=== PATIENT | male | born 1960 | race Caucasian/White ===

== ENCOUNTER 2021-10-14 16:35 | Emergency (ER) | payer OTHER ==
[2021-10-14] MEDS ORDERED: Furosemide 40 MG/4 ML VIAL ONE (17:39)
[2021-10-14 17:48] LABS: #Basophils 0.1 10x3/uL (0.0-0.2); #Eosinphils 0.4 10x3/uL (0.0-0.5); #Monocytes 1.1 10x3/uL (0.0-1.1); #Neutrophils 4.6 10x3/uL (1.5-8.4); %Basophils 0.6 % (0.0-2.0); %Eosinophils 4.5 % (0.0-6.0); %Lymphocytes 23.9 % (18.0-47.0); %Monocytes 13.5 % (0.0-10.0); %Neutrophils 57.1 % (40.0-75.0); Hemoglobin 14.5 g/dL (13.5-17.5); Mean Corpuscular HGB CONC 31.2 g/dL (32.0-36.0); Mean Corpuscular Hemoglobin 29.7 pg (27.0-33.0); Mean Corpuscular Volume 95.3 fl (81.2-95.1); Mean Platelet Volume 10.9 fl (7.4-10.4); Platelet Count 203 10x3/uL (150-450); RBC Distribution Width 12.5 % (11.5-14.5); Red Blood Cell (RBC) Count 4.88 10x6/uL (4.32-5.72)
[2021-10-14 18:04] LABS: ALT (SGPT) 56 U/L (8-55); AST (SGOT) 25 U/L (5-34); Albumin 3.9 g/dL (3.5-5.0); Alkaline Phosphatase 69 U/L (40-110); Anion Gap 12 mmol/L (10-20); BUN (Urea Nitrogen) 11 mg/dL (8.4-25.7); Bilirubin, Total 0.4 mg/dL (0.2-1.2); Calc. Creatinine Clearance 0 mL/min (70-130); Calcium 9.2 mg/dL (7.8-10.44); Carbon Dioxide 31 mmol/L (22-29); Chloride 104 mmol/L (98-107); Globulin 3.3 g/dL (2.4-3.5); Glucose 113 mg/dL (70-105); Potassium 4.5 mmol/L (3.5-5.1); Protein, Total 7.2 g/dL (6.0-8.3); Sodium 142 mmol/L (136-145)
[2021-10-14 21:18] LABS: Bilirubin Neg (Negative); Blood, Urine 10 (Negative); Clarity Clear (Clear); Glucose, Urine (Dipstick) Normal (Negative); Ketone, Urine Negative (Negative); Leukocyte Negative (Negative); Nitrite Negative (Negative); Protein, Urine (Dipstick) Negative (Neg-Trace); Specific Gravity, Urine 1.005 (1.002-1.036); Urobilinogen Normal mg/dL (Less than 2)
[2021-10-14 21:25] LABS: Bacteria/HPF Rare-Few HPF (None Seen); RBC/HPF 0-3 HPF (0-3); Squamous Epithelial 0-3 HPF (0-3); WBC/HPF None Seen HPF (0-3)
== END 2021-10-15 00:44 | disposition short-term general hospital (02) ==
LOC: CSHERS 16:35
DX: R60.0 Localized edema (principal); R33.9 Retention of urine, unspecified; G47.30 Sleep apnea, unspecified; I25.10 Atherosclerotic heart disease of native coronary artery without angina pectoris; G47.33 Obstructive sleep apnea (adult) (pediatric); E78.5 Hyperlipidemia, unspecified; I50.9 Heart failure, unspecified
CPT/HCPCS: 51702; 71045; 80053; 81003; 81015; 83880; 84484; 85025; 86140; 87086; 93005; 96374; J1940

== ENCOUNTER 2021-12-24 20:43 | Inpatient (IN) | payer OTHER ==
[2021-12-24] MEDS ORDERED: Furosemide 100 MG/10 ML VIAL ONE (21:21)
[2021-12-24 21:33] LABS: #Basophils 0.1 10x3/uL (0.0-0.2); #Eosinphils 0.4 10x3/uL (0.0-0.5); #Neutrophils 4.8 10x3/uL (1.5-8.4); %Basophils 0.6 % (0.0-2.0); %Eosinophils 4.4 % (0.0-6.0); %Lymphocytes 26.4 % (18.0-47.0); %Monocytes 11.5 % (0.0-10.0); %Neutrophils 56.7 % (40.0-75.0); Hemoglobin 13.6 g/dL (13.5-17.5); Mean Corpuscular HGB CONC 32.6 g/dL (32.0-36.0); Mean Corpuscular Hemoglobin 29.5 pg (27.0-33.0); Mean Corpuscular Volume 90.5 fl (81.2-95.1); Mean Platelet Volume 11.4 fl (7.4-10.4); Platelet Count 194 10x3/uL (150-450); Red Blood Cell (RBC) Count 4.61 10x6/uL (4.32-5.72); White Blood Cell (WBC) Count 8.5 10x3/uL (3.5-10.5)
[2021-12-24 21:47] LABS: ALT (SGPT) 53 U/L (8-55); AST (SGOT) 24 U/L (5-34); Albumin 3.9 g/dL (3.5-5.0); Alkaline Phosphatase 75 U/L (40-110); Anion Gap 15 mmol/L (10-20); BUN (Urea Nitrogen) 14 mg/dL (8.4-25.7); Bilirubin, Total 0.4 mg/dL (0.2-1.2); Calc. Creatinine Clearance 0 mL/min (70-130); Calcium 8.5 mg/dL (7.8-10.44); Carbon Dioxide 28 mmol/L (22-29); Chloride 101 mmol/L (98-107); Globulin 2.8 g/dL (2.4-3.5); Glucose 133 mg/dL (70-105); Potassium 3.7 mmol/L (3.5-5.1); Protein, Total 6.7 g/dL (6.0-8.3); Sodium 140 mmol/L (136-145)
[2021-12-25 00:31] LABS: SARS-CoV-2 NAA Rapid Test Not Detected (NotDetected)
[2021-12-25] MEDS ORDERED: Guaifenesin DM 100-10/5 ML UDCUP PO PRN (01:29)
[2021-12-25] MEDS ORDERED: Ondansetron PF 4 MG/2 ML Vial IVP PRN (01:29)
[2021-12-25] MEDS ORDERED: Calcium Carbonate 500 MG ChewTAB PO PRN (01:29)
[2021-12-25] MEDS ORDERED: Acetaminophen 325 MG TAB PO PRN (01:29)
[2021-12-25] MEDS ORDERED: Senokot S 8.6-50 MG TAB PO PRN (01:29)
[2021-12-25 02:13] VITALS: BMI 43.0
[2021-12-25] MEDS ORDERED: Potassium Chloride 20 MEQ TAB PO SCH (02:30)
[2021-12-25 04:34] LABS: PTT 25.7 sec (22.0-33.0); Prothrombin Time 11.4 sec (9.5-12.1)
[2021-12-25 04:46] LABS: Anion Gap 17 mmol/L (10-20); BUN (Urea Nitrogen) 15 mg/dL (8.4-25.7); Calc. Creatinine Clearance 143 mL/min (70-130); Calcium 8.8 mg/dL (7.8-10.44); Carbon Dioxide 28 mmol/L (22-29); Chloride 98 mmol/L (98-107); Glucose 168 mg/dL (70-105); Potassium 3.6 mmol/L (3.5-5.1); Sodium 139 mmol/L (136-145)
[2021-12-25] MEDS: Levothyroxine Sodium 25 MCG TAB PO SCH (05:05)
[2021-12-25] MEDS: Furosemide 100 MG/10 ML VIAL SLOW IVP SCH ×2 (05:05→15:37)
[2021-12-25 05:56] LABS: Bilirubin Neg (Negative); Blood, Urine Negative (Negative); Clarity Clear (Clear); Glucose, Urine (Dipstick) Normal (Negative); Ketone, Urine Negative (Negative); Leukocyte Negative (Negative); Nitrite Negative (Negative); Protein, Urine (Dipstick) Negative (Neg-Trace); Urobilinogen Normal mg/dL (Less than 2)
[2021-12-25 06:01] LABS: Bacteria/HPF None Seen HPF (None Seen); RBC/HPF 0-3 HPF (0-3); Squamous Epithelial 0-3 HPF (0-3); WBC/HPF 0-3 HPF (0-3)
[2021-12-25] MEDS: Aspirin 81 mg Enteric Coated Tablet PO SCH (08:41)
[2021-12-25] MEDS: Potassium Chloride 20 MEQ TAB PO SCH (08:41)
[2021-12-25] MEDS: Metoprolol Tartrate 25 MG TAB PO SCH ×3 (08:41→20:30)
[2021-12-25] MEDS ORDERED: Enoxaparin Sodium 40 MG/0.4 ML SYRINGE SC SCH (09:00)
[2021-12-25 12:31] LABS: Hemoglobin A1c 6.7 % (4.0-6.0)
[2021-12-25] MEDS ORDERED: HumaLOG 300 UNITS/3 ML VIAL SC PRN (13:09)
[2021-12-25] MEDS ORDERED: Dextrose 50% Abboject 50 ML SYRINGE SLOW IVP PRN (13:09)
[2021-12-25] MEDS: Lisinopril 10 MG TAB PO SCH (13:09)
[2021-12-25] MEDS ORDERED: Dextrose 5% in Water 1,000 ML IV PRN (13:09)
[2021-12-25] MEDS: Warfarin Sodium 5 MG TAB PO SCH (17:57)
[2021-12-25] MEDS: Atorvastatin Calcium 40 MG TAB PO SCH (20:27)
[2021-12-25] MEDS: Terazosin HCl 1 MG CAP PO SCH (20:27)
[2021-12-26 04:13] LABS: #Eosinphils 0.3 10x3/uL (0.0-0.5); #Neutrophils 3.6 10x3/uL (1.5-8.4); %Basophils 0.4 % (0.0-2.0); %Eosinophils 4.4 % (0.0-6.0); %Lymphocytes 29.2 % (18.0-47.0); %Neutrophils 51.7 % (40.0-75.0); Hemoglobin 13.7 g/dL (13.5-17.5); Mean Corpuscular HGB CONC 32.3 g/dL (32.0-36.0); Mean Corpuscular Hemoglobin 29.4 pg (27.0-33.0); Mean Platelet Volume 11.5 fl (7.4-10.4); Platelet Count 176 10x3/uL (150-450); RBC Distribution Width 12.1 % (11.5-14.5); Red Blood Cell (RBC) Count 4.66 10x6/uL (4.32-5.72)
[2021-12-26 04:19] LABS: Anion Gap 12 mmol/L (10-20); BUN (Urea Nitrogen) 15 mg/dL (8.4-25.7); Calc. Creatinine Clearance 149 mL/min (70-130); Calcium 8.6 mg/dL (7.8-10.44); Carbon Dioxide 30 mmol/L (22-29); Chloride 100 mmol/L (98-107); Glucose 146 mg/dL (70-105); Potassium 3.6 mmol/L (3.5-5.1); Sodium 138 mmol/L (136-145)
[2021-12-26] MEDS: Furosemide 100 MG/10 ML VIAL SLOW IVP SCH ×2 (05:18→13:49)
[2021-12-26] MEDS: Levothyroxine Sodium 25 MCG TAB PO SCH (05:18)
[2021-12-26] MEDS: Metoprolol Tartrate 25 MG TAB PO SCH ×2 (08:41→20:50)
[2021-12-26] MEDS: Potassium Chloride 20 MEQ TAB PO SCH (08:41)
[2021-12-26] MEDS: Aspirin 81 mg Enteric Coated Tablet PO SCH (08:41)
[2021-12-26] MEDS: Lisinopril 10 MG TAB PO SCH (08:41)
[2021-12-26 09:09] LABS: PTT 25.3 sec (22.0-33.0); Prothrombin Time 11.1 sec (9.5-12.1)
[2021-12-26] MEDS: Warfarin Sodium 5 MG TAB PO SCH (17:38)
[2021-12-26] MEDS: Terazosin HCl 1 MG CAP PO SCH (20:50)
[2021-12-26] MEDS: Atorvastatin Calcium 40 MG TAB PO SCH (20:50)
[2021-12-27] MEDS ORDERED: Metoprolol Tartrate 25 MG TAB PO SCH ×2 (02:45→09:00)
[2021-12-27 05:16] LABS: #Eosinphils 0.4 10x3/uL (0.0-0.5); #Monocytes 0.8 10x3/uL (0.0-1.1); #Neutrophils 3.1 10x3/uL (1.5-8.4); %Basophils 0.5 % (0.0-2.0); %Eosinophils 5.6 % (0.0-6.0); %Lymphocytes 31.5 % (18.0-47.0); %Monocytes 12.8 % (0.0-10.0); %Neutrophils 49.3 % (40.0-75.0); Hemoglobin 13.9 g/dL (13.5-17.5); Mean Corpuscular HGB CONC 32.3 g/dL (32.0-36.0); Mean Corpuscular Hemoglobin 29.3 pg (27.0-33.0); Mean Corpuscular Volume 90.7 fl (81.2-95.1); Mean Platelet Volume 11.3 fl (7.4-10.4); Platelet Count 183 10x3/uL (150-450); Red Blood Cell (RBC) Count 4.74 10x6/uL (4.32-5.72); White Blood Cell (WBC) Count 6.3 10x3/uL (3.5-10.5)
[2021-12-27 05:23] LABS: Prothrombin Time 11.3 sec (9.5-12.1)
[2021-12-27 05:27] LABS: Anion Gap 11 mmol/L (10-20); BUN (Urea Nitrogen) 19 mg/dL (8.4-25.7); Calc. Creatinine Clearance 185 mL/min (70-130); Calcium 8.8 mg/dL (7.8-10.44); Carbon Dioxide 30 mmol/L (22-29); Chloride 102 mmol/L (98-107); Glucose 130 mg/dL (70-105); Sodium 139 mmol/L (136-145)
[2021-12-27] MEDS: Levothyroxine Sodium 25 MCG TAB PO SCH (05:52)
[2021-12-27] MEDS: Furosemide 100 MG/10 ML VIAL SLOW IVP SCH ×2 (05:52→13:01)
[2021-12-27] MEDS: Potassium Chloride 20 MEQ TAB PO SCH (08:48)
[2021-12-27] MEDS: Aspirin 81 mg Enteric Coated Tablet PO SCH (08:48)
[2021-12-27] MEDS: Lisinopril 2.5 MG TAB PO SCH (08:49)
[2021-12-27] MEDS ORDERED: Apixaban 5 MG TAB PO SCH (12:00)
[2021-12-27] MEDS ORDERED: Warfarin Sodium 10 MG TAB PO SCH (17:00)
[2021-12-27] MEDS ORDERED: Warfarin Sodium 5 MG TAB PO SCH (17:00)
[2021-12-27] MEDS: Apixaban 5 MG TAB PO SCH (21:14)
[2021-12-27] MEDS: Atorvastatin Calcium 40 MG TAB PO SCH (21:14)
[2021-12-28 05:12] LABS: #Eosinphils 0.5 10x3/uL (0.0-0.5); #Monocytes 0.8 10x3/uL (0.0-1.1); #Neutrophils 3.4 10x3/uL (1.5-8.4); %Basophils 0.3 % (0.0-2.0); %Monocytes 11.9 % (0.0-10.0); %Neutrophils 50.5 % (40.0-75.0); Hemoglobin 13.8 g/dL (13.5-17.5); Mean Corpuscular HGB CONC 31.8 g/dL (32.0-36.0); Mean Corpuscular Hemoglobin 29.2 pg (27.0-33.0); Mean Corpuscular Volume 91.8 fl (81.2-95.1); Mean Platelet Volume 11.3 fl (7.4-10.4); Platelet Count 183 10x3/uL (150-450); Red Blood Cell (RBC) Count 4.73 10x6/uL (4.32-5.72); White Blood Cell (WBC) Count 6.7 10x3/uL (3.5-10.5)
[2021-12-28] MEDS: Levothyroxine Sodium 25 MCG TAB PO SCH (05:24)
[2021-12-28] MEDS: Furosemide 100 MG/10 ML VIAL SLOW IVP SCH ×2 (05:24→14:42)
[2021-12-28 05:26] LABS: Anion Gap 11 mmol/L (10-20); BUN (Urea Nitrogen) 17 mg/dL (8.4-25.7); Calc. Creatinine Clearance 183 mL/min (70-130); Calcium 8.6 mg/dL (7.8-10.44); Carbon Dioxide 31 mmol/L (22-29); Chloride 100 mmol/L (98-107); Glucose 117 mg/dL (70-105); Potassium 3.9 mmol/L (3.5-5.1); Sodium 138 mmol/L (136-145)
[2021-12-28 05:31] LABS: INR-International Normal Ratio 1.1
[2021-12-28] MEDS: Lisinopril 2.5 MG TAB PO SCH (08:18)
[2021-12-28] MEDS: Aspirin 81 mg Enteric Coated Tablet PO SCH (08:18)
[2021-12-28] MEDS: Apixaban 5 MG TAB PO SCH ×2 (08:18→20:57)
[2021-12-28] MEDS ORDERED: Senokot S 8.6-50 MG TAB PO SCH (11:00)
[2021-12-28] MEDS ORDERED: Polyethylene Glycol 3350 17 GM Packet PO SCH (11:00)
[2021-12-28] MEDS ORDERED: Warfarin Sodium 5 MG TAB PO SCH (17:00)
[2021-12-28] MEDS: Atorvastatin Calcium 40 MG TAB PO SCH (20:56)
[2021-12-28] MEDS: Senokot S 8.6-50 MG TAB PO SCH (20:56)
[2021-12-29 04:19] LABS: Anion Gap 14 mmol/L (10-20); BUN (Urea Nitrogen) 19 mg/dL (8.4-25.7); Calc. Creatinine Clearance 163 mL/min (70-130); Calcium 8.7 mg/dL (7.8-10.44); Carbon Dioxide 28 mmol/L (22-29); Chloride 101 mmol/L (98-107); Glucose 123 mg/dL (70-105); Magnesium 2.1 mg/dL (1.6-2.6); Phosphorus 3.6 mg/dL (2.3-4.7); Potassium 3.8 mmol/L (3.5-5.1); Sodium 139 mmol/L (136-145)
[2021-12-29 04:27] LABS: #Eosinphils 0.4 10x3/uL (0.0-0.5); #Monocytes 0.9 10x3/uL (0.0-1.1); #Neutrophils 3.7 10x3/uL (1.5-8.4); %Basophils 0.6 % (0.0-2.0); %Lymphocytes 30.3 % (18.0-47.0); %Monocytes 11.9 % (0.0-10.0); %Neutrophils 50.9 % (40.0-75.0); Hemoglobin 13.9 g/dL (13.5-17.5); Mean Corpuscular HGB CONC 32.3 g/dL (32.0-36.0); Mean Corpuscular Hemoglobin 29.2 pg (27.0-33.0); Mean Corpuscular Volume 90.3 fl (81.2-95.1); Mean Platelet Volume 11.5 fl (7.4-10.4); Platelet Count 196 10x3/uL (150-450); Red Blood Cell (RBC) Count 4.76 10x6/uL (4.32-5.72); White Blood Cell (WBC) Count 7.2 10x3/uL (3.5-10.5)
[2021-12-29] MEDS ORDERED: Potassium Chloride 20 MEQ TAB PO SCH (06:00)
[2021-12-29] MEDS: Levothyroxine Sodium 25 MCG TAB PO SCH (06:34)
[2021-12-29] MEDS: Furosemide 100 MG/10 ML VIAL SLOW IVP SCH ×2 (06:35→14:21)
[2021-12-29] MEDS: Lisinopril 2.5 MG TAB PO SCH (08:55)
[2021-12-29] MEDS: Senokot S 8.6-50 MG TAB PO SCH (08:55)
[2021-12-29] MEDS: Apixaban 5 MG TAB PO SCH (08:56)
[2021-12-29] MEDS: Aspirin 81 mg Enteric Coated Tablet PO SCH (08:56)
[2021-12-29] MEDS ORDERED: Polyethylene Glycol 3350 17 GM Packet PO SCH (09:00)
[2021-12-29] MEDS: HumaLOG 300 UNITS/3 ML VIAL SC PRN ×2 (11:58→16:54)
[2021-12-29 19:23] VITALS: BP 102/60; TEMP 97.9
== END 2021-12-29 20:39 | disposition short-term general hospital (02) | DRG 291 ==
LOC: EEVIPCON 20:43 → CSHERS 20:43 → CSHTELE 12-25 02:02 → OBSVTOIN 12-25 02:03
PROVIDERS: ADMIT Student in an Organized Health Care Education/Training Program; ATTEND Family Medicine
DX: I11.0 Hypertensive heart disease with heart failure (principal); J96.01 Acute respiratory failure with hypoxia; I50.33 Acute on chronic diastolic (congestive) heart failure; I69.354 Hemiplegia and hemiparesis following cerebral infarction affecting left non-dominant side; Z68.41 Body mass index [BMI] 40.0-44.9, adult; E78.5 Hyperlipidemia, unspecified; I25.10 Atherosclerotic heart disease of native coronary artery without angina pectoris; Z20.822 Contact with and (suspected) exposure to COVID-19; I48.0 Paroxysmal atrial fibrillation; E11.65 Type 2 diabetes mellitus with hyperglycemia; R00.1 Bradycardia, unspecified; E78.00 Pure hypercholesterolemia, unspecified; G47.33 Obstructive sleep apnea (adult) (pediatric); I87.2 Venous insufficiency (chronic) (peripheral); E66.01 Morbid (severe) obesity due to excess calories; Z99.81 Dependence on supplemental oxygen; Z79.82 Long term (current) use of aspirin; Z79.890 Hormone replacement therapy; Z79.01 Long term (current) use of anticoagulants; Z79.899 Other long term (current) drug therapy; Z87.891 Personal history of nicotine dependence
CPT/HCPCS: 36415; 36416; 71045; 76705; 80048; 80053; 81001; 83036; 83735; 83880; 84100; 84443; 84484; 85025; 85379; 85610; 85730; 93005; 93010; 93306; 93970; 94640; 94660; 94760; 96374; J1815; J1940; J7620; U0002

== ENCOUNTER 2022-08-18 06:56 | Emergency (ER) | payer OTHER ==
[2022-08-18 08:06] LABS: #Eosinphils 0.3 10x3/uL (0.0-0.5); #Monocytes 0.9 10x3/uL (0.0-1.1); %Basophils 0.2 % (0.0-2.0); %Eosinophils 3.3 % (0.0-6.0); %Lymphocytes 24.8 % (18.0-47.0); %Monocytes 11.2 % (0.0-10.0); %Neutrophils 60.4 % (40.0-75.0); Hemoglobin 13.3 g/dL (13.5-17.5); Mean Corpuscular Hemoglobin 29.2 pg (27.0-33.0); Mean Corpuscular Volume 88.6 fl (81.2-95.1); Mean Platelet Volume 11.1 fl (7.4-10.4); Platelet Count 216 10x3/uL (150-450); RBC Distribution Width 12.8 % (11.5-14.5); Red Blood Cell (RBC) Count 4.55 10x6/uL (4.32-5.72); White Blood Cell (WBC) Count 8.3 10x3/uL (3.5-10.5)
[2022-08-18 08:11] LABS: ALT (SGPT) 32 U/L (8-55); AST (SGOT) 18 U/L (5-34); Alkaline Phosphatase 56 U/L (40-110); Anion Gap 15 mmol/L (10-20); BUN (Urea Nitrogen) 16 mg/dL (8.4-25.7); Bilirubin, Total 0.8 mg/dL (0.2-1.2); CRP (Inflammatory) 1.12 mg/dL (= or < 0.5); Calc. Creatinine Clearance 0 mL/min (70-130); Calcium 8.7 mg/dL (7.8-10.44); Carbon Dioxide 27 mmol/L (23-31); Chloride 100 mmol/L (98-107); Estimated GFR 97; Globulin 2.5 g/dL (2.4-3.5); Glucose 135 mg/dL (80-115); Potassium 3.8 mmol/L (3.5-5.1); Protein, Total 6.5 g/dL (5.8-8.1); Sodium 138 mmol/L (136-145)
[2022-08-18 08:18] LABS: SARS-CoV-2 NAA Rapid Test Not Detected (NotDetected)
[2022-08-18] MEDS ORDERED: Furosemide 100 MG/10 ML VIAL ONE (09:17)
== END 2022-08-18 14:06 | disposition short-term general hospital (02) ==
LOC: CSHERS 06:56
DX: L03.90 Cellulitis, unspecified (principal); R60.0 Localized edema; I11.0 Hypertensive heart disease with heart failure; I50.9 Heart failure, unspecified; E11.9 Type 2 diabetes mellitus without complications; E78.5 Hyperlipidemia, unspecified; E03.9 Hypothyroidism, unspecified; I25.10 Atherosclerotic heart disease of native coronary artery without angina pectoris; Z20.822 Contact with and (suspected) exposure to COVID-19; Z79.899 Other long term (current) drug therapy
CPT/HCPCS: 36415; 71045; 80053; 83605; 83880; 84484; 85025; 86140; 87040; 93005; 96374; 96375; J1940; J3370; U0002

== ENCOUNTER 2022-10-14 20:48 | Emergency (ER) | payer OTHER ==
[2022-10-14] MEDS ORDERED: Acetaminophen 500 MG TAB ONE (21:36)
[2022-10-14] MEDS ORDERED: Cefepime 2 GM VIAL ONE (21:36)
[2022-10-14 22:08] LABS: INR-International Normal Ratio 1.7; PTT 23.8 sec (22.0-33.0)
[2022-10-14 22:29] LABS: #Monocytes 0.6 10x3/uL (0.0-1.1); #Neutrophils 10.9 10x3/uL (1.5-8.4); %Basophils 0.2 % (0.0-2.0); %Eosinophils 0.2 % (0.0-6.0); %Lymphocytes 6.8 % (18.0-47.0); %Monocytes 4.9 % (0.0-10.0); %Neutrophils 87.5 % (40.0-75.0); Hemoglobin 14.7 g/dL (13.5-17.5); Mean Corpuscular HGB CONC 32.2 g/dL (32.0-36.0); Mean Corpuscular Hemoglobin 28.9 pg (27.0-33.0); Mean Corpuscular Volume 89.8 fl (81.2-95.1); Mean Platelet Volume 11.1 fl (7.4-10.4); Platelet Count 189 10x3/uL (150-450); RBC Distribution Width 12.9 % (11.5-14.5); Red Blood Cell (RBC) Count 5.09 10x6/uL (4.32-5.72); White Blood Cell (WBC) Count 12.4 10x3/uL (3.5-10.5)
[2022-10-14] MEDS ORDERED: Furosemide 40 MG/4 ML VIAL ONE (22:55)
[2022-10-14 22:56] LABS: Bilirubin 1+ (Negative); Blood, Urine 50 (Negative); Clarity Cloudy (Clear); Glucose, Urine (Dipstick) Normal (Negative); Ketone, Urine 5 mg/dL (Negative); Leukocyte 500 (Negative); Nitrite Positive (Negative); Protein, Urine (Dipstick) 30 mg/dl (Neg-Trace)
[2022-10-14] MEDS ORDERED: Vancomycin 1 GM VIAL ONE (22:56)
[2022-10-14 23:08] LABS: Bacteria/HPF 4+ HPF (None Seen); RBC/HPF 0-3 HPF (0-3); Squamous Epithelial 0-3 HPF (0-3)
[2022-10-14 23:15] LABS: ALT (SGPT) 40 U/L (8-55); AST (SGOT) 22 U/L (5-34); Albumin 3.6 g/dL (3.4-4.8); Alkaline Phosphatase 55 U/L (40-110); Anion Gap 12 mmol/L (10-20); BUN (Urea Nitrogen) 15 mg/dL (8.4-25.7); Bilirubin, Total 0.6 mg/dL (0.2-1.2); Calc. Creatinine Clearance 0 mL/min (70-130); Calcium 8.9 mg/dL (7.8-10.44); Carbon Dioxide 31 mmol/L (23-31); Chloride 95 mmol/L (98-107); Estimated GFR 90; Globulin 3.4 g/dL (2.4-3.5); Glucose 133 mg/dL (80-115); Potassium 3.7 mmol/L (3.5-5.1); Sodium 134 mmol/L (136-145)
[2022-10-14 23:20] LABS: SARS-CoV-2 NAA Rapid Test Not Detected (NotDetected)
[2022-10-15 00:37] LABS: CKMB 0.7 ng/mL (0-6.6)
[2022-10-15 01:01] LABS: Lactic Acid 0.8 mmol/L (0.5-2.2)
[2022-10-15 05:14] LABS: Troponin I 0.024 ng/mL (< 0.028)
== END 2022-10-15 09:18 | disposition short-term general hospital (02) ==
LOC: CSHERS 20:48
DX: A41.9 Sepsis, unspecified organism (principal); N39.0 Urinary tract infection, site not specified; L03.90 Cellulitis, unspecified; R09.02 Hypoxemia; I25.10 Atherosclerotic heart disease of native coronary artery without angina pectoris; E78.00 Pure hypercholesterolemia, unspecified; I50.9 Heart failure, unspecified; E11.9 Type 2 diabetes mellitus without complications; Z86.73 Personal history of transient ischemic attack (TIA), and cerebral infarction without residual deficits; Z20.822 Contact with and (suspected) exposure to COVID-19
CPT/HCPCS: 36415; 71045; 80053; 81003; 81015; 82553; 83605; 83880; 84484; 85025; 85610; 85730; 87040; 93005; 94760; 96374; 96375; J0692; J1940; J3370; U0002

== ENCOUNTER 2024-04-19 20:02 | Emergency (ER) | payer OTHER ==
[2024-04-19] MEDS ORDERED: Ketorolac Tromethamine 30 MG (1 mL) VIAL ONE (20:57)
[2024-04-19 21:22] LABS: #Basophils 0.05 10x3/uL (0.0-0.2); #Eosinphils 0.39 10x3/uL (0.0-0.5); #Monocytes 0.97 10x3/uL (0.0-1.1); #Neutrophils 3.14 10x3/uL (1.5-8.4); %Basophils 0.6 % (0.0-2.0); %Lymphocytes 41.3 % (18.0-47.0); %Monocytes 12.5 % (0.0-10.0); %Neutrophils 40.5 % (40.0-75.0); ALT (SGPT) 29 U/L (8-55); AST (SGOT) 16 U/L (5-34); Albumin 3.3 g/dL (3.4-4.8); Alkaline Phosphatase 54 U/L (40-110); Anion Gap 11 mmol/L (10-20); BUN (Urea Nitrogen) 12 mg/dL (8.4-25.7); Bilirubin, Total 0.3 mg/dL (0.2-1.2); Calc. Creatinine Clearance 0 mL/min (70-130); Calcium 8.7 mg/dL (7.8-10.44); Carbon Dioxide 25 mmol/L (23-31); Chloride 105 mmol/L (98-107); Estimated GFR 99; Globulin 3.1 g/dL (2.4-3.5); Glucose 97 mg/dL (80-115); Hematocrit 45.8 % (38.8-50.0); Hemoglobin 14.4 g/dL (13.5-17.5); Mean Corpuscular HGB CONC 31.4 g/dL (32.0-36.0); Mean Corpuscular Hemoglobin 29.4 pg (27.0-33.0); Mean Corpuscular Volume 93.5 fL (81.2-95.1); Mean Platelet Volume 10.8 fL (7.4-10.4); Platelet Count 227 10x3/uL (150-450); Potassium 3.8 mmol/L (3.5-5.1); Protein, Total 6.4 g/dL (5.8-8.1); RBC Distribution Width 12.7 % (11.5-14.5); Sodium 137 mmol/L (136-145); White Blood Cell (WBC) Count 7.8 10x3/uL (3.5-10.5)
[2024-04-20] MEDS ORDERED: traMADol HCl 50 MG TAB ONE (01:00)
[2024-04-20 01:03] LABS: Bilirubin Neg (Negative); Blood, Urine 150 (Negative); Clarity Clear (Clear); Glucose, Urine (Dipstick) Normal (Negative); Ketone, Urine Negative (Negative); Leukocyte 25 (Negative); Nitrite Negative (Negative); Protein, Urine (Dipstick) 30 mg/dl (Neg-Trace); Specific Gravity, Urine 1.015 (1.005-1.030)
[2024-04-20 01:13] LABS: Bacteria/HPF 1+ HPF (None Seen); CAUTI Indications for Culture Pelvic or flank pain; Mucous/LPF 1+ LPF (<2+); RBC/HPF 21-50 HPF (0-3); Squamous Epithelial 0-3 HPF (0-3); WBC/HPF 0-3 HPF (0-3)
[2024-04-20 01:14] LABS: Urine Culture Reflex No No
[2024-04-20] MEDS ORDERED: Cefdinir 300 MG CAP ONE (01:31)
== END 2024-04-20 01:37 ==
LOC: CSHERS 20:02
DX: N39.0 Urinary tract infection, site not specified (principal); I50.9 Heart failure, unspecified; E11.9 Type 2 diabetes mellitus without complications
CPT/HCPCS: 36415; 74176; 80053; 81001; 85025; 87086; 96372; J1885